=== PATIENT | male | born 1950 | race African-American/Black ===

== ENCOUNTER → 2016-07-20 | Outpatient (CLI) | payer MEDICARE, OTHER ==
[~2016-07-20] MED LIST: CENTRUM COMPLE1 EAC1 PO; RESTORIL15 MG ORAL; SYNTHROID50 MCG ORAL
--- NOTE | 2016-07-20 14:03 | GI Initial Consult Note ---
History of Present Illness General Date patient seen: Jul 20, 2016 Time patient seen: 13:00 Referring physician: RICARDA MITCHELL Reason for Consultation: EGD/Colonoscopy Review Present Illness HPI 66 year old male patient recently admitted to [facility] on 05/2016 s/p EGD colonoscopy referred to [facility] for follow up 1 month post procedure date. Patient currently has quit drinking and is currently in rehabilitation at this moment. No general GI complaints noted by the patient. See below for full report. DATE OF PROCEDURE: 06/07/2016 SURGEON: Ricardo Freed M.D. PROCEDURE: Upper endoscopy with biopsy and colonoscopy with snare polypectomy. INDICATION: Gastrointestinal bleeding and anemia. REASON FOR PROCEDURE: The procedure, risks, benefits, and possible consequences, including hemorrhage, aspiration, perforation and infection, and alternative treatments, were explained to the patient/legal guardian by Dr. Ricardo Freed and the patient/legal guardian understood and accepted these risks. SUMMARY FINDINGS: 1. Distal esophageal ring. 2. Possible grade 1 distal esophageal varices. 3. Small hiatal hernia. 4. Gastritis suspicious for GAVE. 5. Moderate duodenitis. 6. Internal hemorrhoids. 7. Diverticulosis. 8. One colonic polyp removed. RECOMMENDATIONS: 1. Follow up biopsies and treat accordingly. 2. The patient would need a repeat colonoscopy in three years given the size of the colon polyp, which is 1 cm. Home Meds Active Scripts Temazepam* (RESTORIL*) 15 Mg Capsule, 15 MG ORAL DAILYPRN Y for 30 Days, CAP Prov:RICARDA LILLY 06/15/16 Levothyroxine Sodium (Synthroid) 50 Mcg Tablet, 50 MCG ORAL DAILY@0630 for 30 Days, TAB Take in the morning on an empty stomach, at least 30 minutes beforefood. Prov:RICARDA LILLY 06/15/16 Reported Medications Multivitamin/Iron/Folic Acid (CENTRUM COMPLETE MULTIVIT TAB) 1 Each Tablet, 1 EACH PO DAILY, TAB 06/04/16 Med list reviewed/reconciled: Yes Allergies: Coded Allergies: NO KNOWN ALLERGIES (Verified Allergy, Unknown, 06/04/16) Patient History History Provided By: Patient, Medical Record [facility] Narrative (1) Ankle fracture, left (2) HTN (hypertension) (3) History of ETOH abuse (4) Fall (5) Cerebrovascular accident (CVA) Social History: Reports: alcohol use Social History: Reports: alcohol use - quit Review of Systems All Other Systems: negative except mentioned in HPI Physical Exam T 97.6 BP 139/91 P 89 98 RA Sp02 EP Interpretation: reviewed General Appearance: normal inspection, well appearing, no apparent distress, alert Head: normocephalic EENT: normal ENT inspection Neck: full range of motion Respiratory: normal breath sounds Cardiovascular: normal rate Gastrointestinal: normal inspection, non tender, soft, normal bowel sounds Rectal: deferred Genitourinary: no CVA tenderness Musculoskeletal: normal inspection Neurologic: alert, oriented x3, responsive Psychiatric: normal inspection, judgement/insight normal Skin: normal inspection, normal color Lymphatic: normal inspection, no adenopathy GI: Plan Problems: (1) Esophageal varices (2) Liver cirrhosis (3) Diverticulosis (4) Hypoalbuminemia (5) Alcohol abuse (6) Anemia (7) Colonic polyp Plan EGD/colonoscopy reviewed with patient and acknowleged Rx Protonix 40mg daily ETOH abstinence >> pt in rehabilitation diverticulosis dietary education RTC x 3 months for lab draw repeat colon x [address] Freed. Thank you for referring this patient. Jennifer Casper N.P. Jul 20, 2016 14:03
[2016-07-20 15:09] VITALS: BP 139/91
== END | disposition home or self-care (01) ==
LOC: PAN 13:06
DX: I85.00 Esophageal varices without bleeding (principal); K74.60 Unspecified cirrhosis of liver; K57.90 Diverticulosis of intestine, part unspecified, without perforation or abscess without bleeding; E88.09 Other disorders of plasma-protein metabolism, not elsewhere classified; F10.10 Alcohol abuse, uncomplicated; K63.5 Polyp of colon; I10 Essential (primary) hypertension; Z86.73 Personal history of transient ischemic attack (TIA), and cerebral infarction without residual deficits
CPT/HCPCS: 99211

== ENCOUNTER → 2016-10-19 | Outpatient (CLI) | payer MEDICARE, OTHER ==
[~2016-10-19] MED LIST changes: +CATAPRES0.1 MG ORAL; +PROTONIX40 MG ORAL
[2016-10-19 13:42] VITALS: BP 154/104
--- NOTE | 2016-10-19 14:43 | GI Progress Note ---
Assessment/Plan Assessment/Plan (1) Esophageal varices (2) Liver cirrhosis (3) Diverticulosis (4) Hypoalbuminemia (5) Alcohol abuse (6) Anemia (7) Colonic polyp Plan ordered CBC, CMP, Abd U/S cont Protonix 40mg daily ETOH abstinence >> pt in rehabilitation RTC post imaging study repeat colon x 5 years Subjective Subjective GERD, not taking PPI denies ETOH use Objective Last 24 Hour Vital Signs Date Time Temp Pulse Resp B/P Pulse Ox O2 Delivery O2 Flow Rate FiO2 10/19/16 13:42 98.0 90 18 154/104 General Appearance: no apparent distress, alert Cardiovascular: normal rate Respiratory/Chest: normal breath sounds, no respiratory distress Abdominal Exam: normal bowel sounds, non tender, soft Extremities: normal range of motion Objective DATE OF PROCEDURE: 06/07/2016 SURGEON: Ricardo Freed M.D. PROCEDURE: Upper endoscopy with biopsy and colonoscopy with snare polypectomy. INDICATION: Gastrointestinal bleeding and anemia. REASON FOR PROCEDURE: The procedure, risks, benefits, and possible consequences, including hemorrhage, aspiration, perforation and infection, and alternative treatments, were explained to the patient/legal guardian by Dr. Ricardo Freed and the patient/legal guardian understood and accepted these risks. SUMMARY FINDINGS: 1. Distal esophageal ring. 2. Possible grade 1 distal esophageal varices. 3. Small hiatal hernia. 4. Gastritis suspicious for GAVE. 5. Moderate duodenitis. 6. Internal hemorrhoids. 7. Diverticulosis. 8. One colonic polyp removed. Jennifer Casper N.P. Oct 19, 2016 14:43
[2016-10-19 16:47] LABS: BASOPHILS % (AUTO) 1.6 % (0.0-2.0); EOSINOPHILS % (AUTO) 7.7 % (0.0-3.0); LYMPHOCYTES % (AUTO) 25.3 % (20.0-45.0); MEAN CORPUSCULAR HEMOGLOBIN 26.7 PG (27.0-31.0); MEAN CORPUSCULAR HGB CONC 32.7 G/DL (32.0-36.0); MEAN CORPUSCULAR VOLUME 82 FL (80-99); MEAN PLATELET VOLUME 6.3 FL (6.5-10.1); MONOCYTES % (AUTO) 8.5 % (1.0-10.0); PLATELET COUNT 201 K/UL (150-450); RED BLOOD COUNT 4.89 M/UL (4.70-6.10); RED CELL DISTRIBUTION WIDTH 17.9 % (11.6-14.8); WHITE BLOOD COUNT 6.7 K/UL (4.8-10.8)
[2016-10-19 17:07] LABS: ALANINE AMINOTRANSFERASE 9 U/L (3-41); ANION GAP 17 (5-15); ASPARTATE AMINO TRANSFERASE 25 U/L (5-40); CALCIUM 9.4 mg/dL (8.6-10.2); CARBON DIOXIDE 22 mEQ/L (20-30); CHLORIDE 100 mEQ/L (98-107); GLOMERULAR FILTRATION RATE > 60 mL/min (>60); HEMOLYSIS 3; POTASSIUM 4.2 mEQ/L (3.4-4.9); SODIUM 139 mEQ/L (135-145); TOTAL PROTEIN 7.9 g/dL (6.6-8.7)
== END | disposition home or self-care (01) ==
LOC: PAN 13:22
DX: I85.00 Esophageal varices without bleeding (principal); K74.60 Unspecified cirrhosis of liver; K57.90 Diverticulosis of intestine, part unspecified, without perforation or abscess without bleeding; E88.09 Other disorders of plasma-protein metabolism, not elsewhere classified; D64.9 Anemia, unspecified; K63.5 Polyp of colon; K21.9 Gastro-esophageal reflux disease without esophagitis
CPT/HCPCS: 36415; 80053; 85025; G0463; 99212

== ENCOUNTER 2016-10-25 10:15 | Outpatient (CLI) | payer MEDICARE, OTHER ==
--- NOTE | 2016-10-19 14:14 | GI Progress Note ---
Assessment/Plan Status: stable Status Narrative Seen with Dr. Freed. Assessment/Plan (1) Esophageal varices (2) Liver cirrhosis (3) Diverticulosis (4) Hypoalbuminemia (5) Alcohol abuse (6) Anemia (7) Colonic polyp Plan ordered CBC, CMP, Abd U/S cont Protonix 40mg daily ETOH abstinence >> pt in rehabilitation RTC post imaging study repeat colon x 5 years The patient was seen and examined at bedside and all new and available data was reviewed in the patients chart. I agree with the above findings, impression and plan. (Patient seen earlier today. Signature stamp does not reflect patient encounter time.). -Ricardo Freed MD Subjective Subjective GERD, not taking PPI denies ETOH use Objective T 98.0 BP 154/104 P 90 HT 5'5 WT 152 General Appearance: no apparent distress, alert Cardiovascular: normal rate Respiratory/Chest: normal breath sounds, no respiratory distress Abdominal Exam: normal bowel sounds, non tender, soft Extremities: normal range of motion Objective DATE OF PROCEDURE: 06/07/2016 SURGEON: Ricardo Freed M.D. PROCEDURE: Upper endoscopy with biopsy and colonoscopy with snare polypectomy. INDICATION: Gastrointestinal bleeding and anemia. REASON FOR PROCEDURE: The procedure, risks, benefits, and possible consequences, including hemorrhage, aspiration, perforation and infection, and alternative treatments, were explained to the patient/legal guardian by Dr. Ricardo Freed and the patient/legal guardian understood and accepted these risks. SUMMARY FINDINGS: 1. Distal esophageal ring. 2. Possible grade 1 distal esophageal varices. 3. Small hiatal hernia. 4. Gastritis suspicious for GAVE. 5. Moderate duodenitis. 6. Internal hemorrhoids. 7. Diverticulosis. 8. One colonic polyp removed. Jennifer Casper N.P. Oct 19, 2016 14:13 RICARDO FREED Oct 20, 2016 07:38
--- NOTE | 2016-10-25 15:53 | Diagnostic Imaging Report ---
Indication: Abdominal distention, history of cirrhosis Technique: Ellison-scale and duplex images of the upper abdomen were obtained Comparison: None Findings: 3.9 x 3 x 4.1 cm echogenic area is seen adjacent/posterior to the left hepatic lobe Gallbladder is unremarkable, without stones, wall thickening, nor pericholecystic fluid. Sonographic Rubio's sign is negative. Common bile duct measures by mm in diameter. No intrahepatic biliary ductal dilatation. Liver demonstrates coarsened echogenicity as well as surface nodularity. No focal abnormalities. Portal vein and hepatic veins are patent. Pancreas is unremarkable. Spleen is unremarkable. Left kidney measures 9.7 cm in length. Right kidney measures 9.7 cm length. Both kidneys demonstrate normal echogenicity. There is no hydronephrosis. No focal abnormality . Non-aneurysmal abdominal aorta . Impression: Questionable echogenic area adjacent to the left hepatic lobe, of uncertain etiology/significance. Further evaluation with abdomen/pelvis CT should be considered Negative for gallstones or dilated ducts Coarsened hepatic echogenicity and hepatic surface nodularity, consistent with known history of cirrhosis.
== END 2016-10-25 12:00 | disposition home or self-care (01) ==
LOC: ULS 10:15
DX: K74.60 Unspecified cirrhosis of liver (principal); R14.0 Abdominal distension (gaseous)
CPT/HCPCS: 76700

== ENCOUNTER 2016-11-01 13:18 | Outpatient (CLI) | payer MEDICARE, OTHER ==
[2016-11-01 13:15] VITALS: BP 152/103
--- NOTE | 2016-11-01 13:45 | GI Progress Note ---
Assessment/Plan Problems: (1) Colonic polyp ICD Codes: K63.5 - Polyp of colon SNOMED: 72656988 (2) Liver cirrhosis ICD Codes: K74.60 - Unspecified cirrhosis of liver SNOMED: 86606294 (3) Esophageal varices ICD Codes: I85.00 - Esophageal varices without bleeding SNOMED: 33949881 (4) Anemia ICD Codes: D64.9 - Anemia, unspecified SNOMED: 654254820 (5) Alcohol abuse ICD Codes: F10.10 - Alcohol abuse, uncomplicated SNOMED: 42304747, 41671301 Status: stable Status Narrative Seen with Dr. Freed. Assessment/Plan CBC, CMP, Abd U/S reviewed with patient >> ordered APCT to evaluate echogenic area of liver cont Protonix 40mg daily ETOH abstinence >> pt in rehabilitation RTC post imaging study repeat colon x 3 years given hx of polyps Subjective Gastrointestinal/Abdominal: Reports: no symptoms Objective T 97.5 BP 152/103 P 90 99 RA Denies weight loss. General Appearance: no apparent distress, alert Cardiovascular: normal rate Respiratory/Chest: normal breath sounds, no respiratory distress Abdominal Exam: normal bowel sounds, non tender, soft Extremities: normal range of motion Objective Service Date: 10/25/16 Procedure: US ABD Complete Indication: Abdominal distention, history of cirrhosis Impression: Questionable echogenic area adjacent to the left hepatic lobe, of uncertain etiology/significance. Further evaluation with abdomen/pelvis CT should be considered Negative for gallstones or dilated ducts Coarsened hepatic echogenicity and hepatic surface nodularity, consistent with known history of cirrhosis. Jennifer Casper N.P. November 01, 2016 13:45
== END 2016-11-01 13:38 | disposition home or self-care (01) ==
LOC: PAN 13:18
DX: K63.5 Polyp of colon (principal); K74.60 Unspecified cirrhosis of liver; I85.00 Esophageal varices without bleeding; D64.9 Anemia, unspecified; F10.10 Alcohol abuse, uncomplicated
CPT/HCPCS: 99211

== ENCOUNTER 2016-11-08 09:29 | Outpatient (CLI) | payer MEDICARE, OTHER ==
--- NOTE | 2016-11-08 13:48 | Diagnostic Imaging Report ---
Indication: Abdominal pain. Ultrasound abnormality left lobe liver Technique: Continuous helical transaxial imaging of the abdomen and pelvis was obtained from the lung bases to the pubic symphysis during intravenous contrast administration. Coronal 2-D reformats were also obtained. Study obtained in a Siemens sensation [address] Total Dose length Product (DLP): [address] Dose Index Volume (CTDIvol): 12, 85, 13, 15, 15 mGy Comparison: Abdominal ultrasound 10/25/16 Findings: The sonographically demonstrated the area of increased echogenicity was reviewed and noted. The corresponding area on the current CT scan shows no abnormalities. There is no mass within the liver or adjacent to the liver. I believe the sonographically demonstrated abnormality is artifactual. There is slight heterogeneity and increased density in the fundus of the gallbladder. This may be a small polyp or small impacted stone. There is no sonographic correlate. There is no biliary ductal dilatation. The main portal vein is normal in enhancement as are the portal venous branches. In the uncinate process of the pancreas there is a cystic focus that is slightly lobulated measuring approximately 1.7 x 1.5 cm. (Image 25-29, series 8). This is probably an incidental intraductal papillary mucinous neoplasm (IPMN). Further characterization with gadolinium enhanced MRI (pancreas protocol) is recommended. Generalized atrophy of the pancreas is noted. There is the suggestion of small cystic foci within the body of the pancreas. This may be further evaluated as well with MRI. There is a small hiatal hernia. Aorta is moderately calcified. Kidneys and adrenal glands are unremarkable. Normal appendix is demonstrated. There are diverticula in the colon. Bilateral hernias are present containing fat larger on the right. Slight thickening of the wall the urinary bladder is present although this evaluation is done with the bladder nondistended. There is narrowing of intervertebral discs and accompanying endplate osteophyte formation. Hypertrophied facet joints also demonstrated. Impression: Negative CT scan of the liver. The sonographically demonstrated finding is probably artifact. 1.7 x 1.5 cm cystic focus within the uncinate process of the pancreas, most likely representing an IPMN. Further gadolinium MRI evaluation is recommended. Heterogeneous polyp versus stones in the fundal region of the gallbladder. Atherosclerotic vascular disease Diverticulosis of the colon Bilateral inguinal hernias containing fat larger on the right. Spondylosis. Thickening of the urinary bladder wall. Cystitis suspected. Please correlate clinically. The CT scanner at is accredited by the [employer] and the scans are performed using dose optimization techniques as appropriate to a performed exam including Automatic Exposure control.
== END 2016-11-08 10:30 | disposition home or self-care (01) ==
LOC: RAD 09:29
DX: R10.9 Unspecified abdominal pain (principal); K57.90 Diverticulosis of intestine, part unspecified, without perforation or abscess without bleeding; M47.9 Spondylosis, unspecified; K40.20 Bilateral inguinal hernia, without obstruction or gangrene, not specified as recurrent; I70.90 Unspecified atherosclerosis
CPT/HCPCS: 74177; Q9967

== ENCOUNTER 2016-11-21 10:00 | Outpatient (CLI) | payer MEDICARE, OTHER ==
--- NOTE | 2016-11-21 15:08 | Diagnostic Imaging Report ---
Indication: 66-year-old male outpatient with history of pancreatic cyst, abdominal pain Technique: Coronal and axial single shot fast spin-echo breath-hold, axial T2 FRFSE, 2-D thick slab MRCP, AXIAL 2-D FIESTA fat saturated, axial 3-D dual echo breath-hold, water weighted axial LAVA FLEX, revealed 3-D MRCP images were obtained of the abdomen. MIP reconstructions were generated of the bile ducts Comparison: CT abdomen pelvis 11/08/2016 Findings: Motion artifact degrades several sequences There is suggestion of a subtle 7 mm filling defect in the gallbladder fundus. However, no gallstones are demonstrated on recent ultrasound. Gallstone or polyp is questionably evident on recent CT. No biliary ductal dilatation or biliary ductal calculi are demonstrated. In the uncinate process of the pancreas, corresponding to the lesion described on recent CT, there is a 2 cm lobulated cyst. An 8mm cyst is seen with in the body of the pancreas. Is also described on recent CT. This appears to communicate with a side branch of the main pancreatic duct. No definite solid pancreatic mass. The pancreas is somewhat atrophic. There is mild ectasia of the pancreatic duct. The liver, spleen, adrenals, kidneys are unremarkable. No free intraperitoneal air. The visualized enteric structures are unremarkable Impression: 2 cm lobulated cystic lesion in the uncinate process of the pancreas, corresponding to that described on recent CT scan. Differential considerations include small pseudocyst, main duct intraductal papillary mucinous neoplasm, less likely serous cystic neoplasm, much less likely a mucinous cystic neoplasm. Per [employer] recommendations, one year followup imaging, preferably with MRCP, is recommended for further evaluation of incidental pancreatic cystic lesions of under 2 cm 8 mm cyst within the body of the pancreas, appearance suggestive of a side branch intraductal papillary mucinous neoplasm. One year followup exam would likewise be appropriate Questionable gallbladder fundal filling defect, similar abnormality described on recent CT. Small sonographically occult polyp or stone is a possibility Findings and recommendations for followup discussed by phone with Dr. Greene at the time of interpretation
== END 2016-11-21 12:00 | disposition home or self-care (01) ==
LOC: MRI 10:00
DX: K86.2 Cyst of pancreas (principal)
CPT/HCPCS: 74181

== ENCOUNTER 2016-11-28 09:52 | Outpatient (CLI) | payer MEDICARE, OTHER ==
--- NOTE | 2016-11-28 15:44 | GI Progress Note ---
Assessment/Plan Problems: (1) Liver cirrhosis ICD Codes: K74.60 - Unspecified cirrhosis of liver SNOMED: 97626079 (2) Esophageal varices ICD Codes: I85.00 - Esophageal varices without bleeding SNOMED: 49101902 (3) Colonic polyp ICD Codes: K63.5 - Polyp of colon SNOMED: 08834279 (4) Anemia ICD Codes: D64.9 - Anemia, unspecified SNOMED: 914517205 (5) Alcohol abuse ICD Codes: F10.10 - Alcohol abuse, uncomplicated SNOMED: 70715779, 71366356 (6) Hypoalbuminemia ICD Codes: E88.09 - Other disorders of plasma-protein metabolism, not elsewhere classified SNOMED: 159996580 (7) Alcohol withdrawal ICD Codes: F10.239 - Alcohol dependence with withdrawal, unspecified SNOMED: 723178817 Status: stable Status Narrative Seen with Dr. Freed. Assessment/Plan CBC, CMP, Abd U/S reviewed with patient >> APCT to evaluate echogenic area of liver APCT reviewed >> Negative CT scan of the liver. 1.7 x 1.5 cm cystic focus within the uncinate process of the pancreas, most MRI reviewed >> pancreatic cyst x 2, see full imaging report. pt scheduled for EUS on 12/11/16. - NPO @ [facility] day prior procedure. cont Protonix 40mg daily ETOH abstinence >> pt in rehabilitation repeat colon x 3 years given hx of polyps Subjective Gastrointestinal/Abdominal: Reports: no symptoms Objective T 97.6 BP 127/93 P 85 96 RA weight gain General Appearance: no apparent distress, alert Cardiovascular: normal rate Respiratory/Chest: normal breath sounds, no respiratory distress Abdominal Exam: normal bowel sounds, non tender, soft Extremities: normal range of motion Jennifer Casper NJose A Nov 28, 2016 15:44
== END 2016-11-28 10:31 | disposition home or self-care (01) ==
LOC: PAN 09:52
DX: K74.60 Unspecified cirrhosis of liver (principal); I85.00 Esophageal varices without bleeding; K63.5 Polyp of colon; D64.9 Anemia, unspecified; F10.10 Alcohol abuse, uncomplicated; E88.09 Other disorders of plasma-protein metabolism, not elsewhere classified; F10.239 Alcohol dependence with withdrawal, unspecified
CPT/HCPCS: 99211

== ENCOUNTER 2017-01-16 09:56 | Outpatient (CLI) | payer MEDICARE, OTHER ==
[~2017-01-16 09:56] MED LIST changes: +ASPIR 8181 MG ORAL; +LEVOTHYROXINE137 MCG ORAL
[2017-01-16 10:40] VITALS: BP 125/91
--- NOTE | 2017-01-16 11:09 | GI Progress Note ---
Assessment/Plan Problems: (1) Pancreatic cyst ICD Codes: K86.2 - Cyst of pancreas SNOMED: 10496433 (2) Liver cirrhosis ICD Codes: K74.60 - Unspecified cirrhosis of liver SNOMED: 88298416 (3) Esophageal varices ICD Codes: I85.00 - Esophageal varices without bleeding SNOMED: 86884038 (4) Colonic polyp ICD Codes: K63.5 - Polyp of colon SNOMED: 72840981 (5) Alcohol abuse ICD Codes: F10.10 - Alcohol abuse, uncomplicated SNOMED: 36326237, 79643513 (6) Anemia ICD Codes: D64.9 - Anemia, unspecified SNOMED: 493318621 (7) Hypoalbuminemia ICD Codes: E88.09 - Other disorders of plasma-protein metabolism, not elsewhere classified SNOMED: 325525448 (8) Alcohol withdrawal ICD Codes: F10.239 - Alcohol dependence with withdrawal, unspecified SNOMED: 993412861 Status: stable Status Narrative Seen with Dr. Freed. Assessment/Plan EUS SUMMARY OF FINDINGS reviewed with patient: 1. Normal left adrenal gland. 2. No celiac axis lymphadenopathy. 3. Evidence of chronic pancreatitis. 4. Mildly dilated pancreatic duct in the body and head, in the body measured about 2.7 and in the head about 2.8 mm. 5. A 2.43 cm complex cystic lesion coming off of the pancreatic duct in the head , it seems that at least four cysts coming together and it is complex but given it arises from pancreatic duct it rises suspicious for side branch IPMN. 6. Status post fine-needle aspiration, see above for details. RECOMMENDATIONS: 1. Follow aspirated liquid CA level.>> 587.[address] Ahumada for surgical consultation RTC x 3 months Subjective Gastrointestinal/Abdominal: Reports: no symptoms Objective Last 24 Hour Vital Signs Date Time Temp Pulse Resp B/P Pulse Ox O2 Delivery O2 Flow Rate FiO2 01/16/17 10:40 98.0 86 16 125/91 General Appearance: no apparent distress, alert, lethargic Cardiovascular: normal rate Respiratory/Chest: normal breath sounds, no respiratory distress Abdominal Exam: normal bowel sounds, non tender, soft Extremities: normal range of motion Jennifer Casper NJose A Jan 16, 2017 11:09
== END 2017-01-16 10:45 | disposition home or self-care (01) ==
LOC: PAN 09:56
DX: K86.2 Cyst of pancreas (principal); K74.60 Unspecified cirrhosis of liver; I85.00 Esophageal varices without bleeding; K63.5 Polyp of colon; F10.10 Alcohol abuse, uncomplicated; D64.9 Anemia, unspecified; E88.09 Other disorders of plasma-protein metabolism, not elsewhere classified; F10.239 Alcohol dependence with withdrawal, unspecified; K86.1 Other chronic pancreatitis
CPT/HCPCS: 99211

== ENCOUNTER 2017-03-13 09:39 | Outpatient (CLI) | payer MEDICARE, OTHER ==
[2017-03-13 09:54] VITALS: BP 135/101
--- NOTE | 2017-03-13 10:21 | GI Progress Note ---
Assessment/Plan Problems: (1) Pancreatic cyst ICD Codes: K86.2 - Cyst of pancreas SNOMED: 92477707 (2) Liver cirrhosis ICD Codes: K74.60 - Unspecified cirrhosis of liver SNOMED: 70283438 (3) Esophageal varices ICD Codes: I85.00 - Esophageal varices without bleeding SNOMED: 34534807 Status: doing well, stable Status Narrative Seen with Dr. Freed. Assessment/Plan Liver Bx reviewed >> moderate steatosis. no cirrhosis noted. portal to hepatic vein gradient 3. RTC x 3 months to schedule EUS to evaluate pancreatic cyst. will consider EGD given history of EV. Subjective Subjective denies any symptoms exercises everyday has good eating habits Objective Last 24 Hour Vital Signs Date Time Temp Pulse Resp B/P (MAP) Pulse Ox O2 Delivery O2 Flow Rate FiO2 03/13/17 09:54 97.7 97 16 135/101 General Appearance: no apparent distress, alert Cardiovascular: normal rate Respiratory/Chest: normal breath sounds, no respiratory distress Abdominal Exam: normal bowel sounds, non tender, soft Extremities: normal range of motion Jennifer Casper N.P. Mar 13, 2017 10:21
== END 2017-03-13 10:15 | disposition home or self-care (01) ==
LOC: PAN 09:39
DX: K86.2 Cyst of pancreas (principal); K74.60 Unspecified cirrhosis of liver; I85.00 Esophageal varices without bleeding
CPT/HCPCS: 99211